=== PATIENT | male | born 1995 | race Caucasian/White ===

== ENCOUNTER 2024-03-07 16:57 | Emergency (ER) | payer OTHER ==
[~2024-03-07] VITALS: Ht 177.8 cm; Wt 96.7 kg
[2024-03-07 17:12] VITALS: BP 114/78; PULSE 85; RESP 18; TEMP 97.6; O2SAT 96
[2024-03-07] MEDS ORDERED: FLONAS NS (19:24)
[2024-03-07] MEDS ORDERED: PROM118S5 PO (19:24)
[2024-03-07 19:31] VITALS: BP 112/68; PULSE 70; RESP 16; TEMP 97.8; O2SAT 98
== END 2024-03-07 19:31 | disposition home or self-care (01) ==
LOC: MED 16:57
DX: J06.9 Acute upper respiratory infection, unspecified (principal); J45.909 Unspecified asthma, uncomplicated; Z79.899 Other long term (current) drug therapy; Z88.1 Allergy status to other antibiotic agents; Z91.018 Allergy to other foods
CPT/HCPCS: 71045; 87081; 99284